=== PATIENT | female | born 1930 | race Caucasian/White ===

== ENCOUNTER 2019-08-23 09:13 | Inpatient (IN) ==
--- NOTE | 2019-08-23 09:43 | PROVIDER DOCUMENTATION ---
HPI-General Adult - General Chief Complaint: Weakness Stated Complaint: generalized weakness Time Seen by Provider: 08/23/19 09:30 Source: patient Allergies/Adverse Reactions: Patient Allergies Allergy/AdvReac Type Severity Reaction Status Date / Time No Known Allergies Allergy Verified 12/24/15 09:28 Home Medications: Home Medication List Medication Instructions Recorded Confirmed Last Taken Type Fluticasone Propionate [Flonase 2 spray NS DAILY 12/24/15 08/23/19 08/08/19 History Allergy Relief] 2 SPRAY Hydrochlorothiazide 12.5 mg PO DAILY 12/24/15 08/23/19 08/22/19 History 12.5 MG Levothyroxine [Synthroid] 0.5 tab PO DAILY 12/24/15 08/23/19 08/22/19 History 0.5 TAB Losartan Potassium 100 mg PO DAILY 12/24/15 08/23/19 08/22/19 History 100 MG Metoprolol Tartrate 25 mg PO BID 12/24/15 08/23/19 08/22/19 History 25 MG SIMVAstatin [Zocor] 40 mg PO QHS 12/24/15 08/23/19 08/22/19 History 40 MG Ubidecarenone [Co Q-10] 100 mg PO DAILY 12/24/15 08/23/19 08/22/19 History 100 MG Warfarin [Coumadin] 5 mg PO QHS 12/24/15 08/23/19 08/22/19 History 5 MG Flecainide Acetate 50 mg PO BID 08/23/19 08/23/19 08/22/19 History 50 MG Spironolactone 25 mg PO EVERY OTHER DAY 08/23/19 08/23/19 08/22/19 History 25 MG - History of Present Illness -Gen Adult Nature of Presenting Problems: Patient with a h/o HTN, HLD, Afib, hypot4, reports generalized weakness of 3 days duration , got worse today and had difficulty standing up from her toilet s eat until EMS arrival. She denies any chest pain, diaphoresis. She felt a little nauseous today but no vomiting. She has not been eating solid but puree diet for the past 3 to 4 days due to constipation and has had lots of BM recently. She does not have abdominal pain or diarrhea. Had difficulty urinating due to constipation but this has resolved now since having BM. She denies fever Location of Pain/Injury: reports: none, other (generalised weakness) Pain Radiation: reports: no radiation Onset/Duration: reports: 3 days ago Timing: reports: still present, getting worse Context/Activities at Onset: reports: none Modifying Factors: improves with: nothing Associated Symptoms: reports: nausea Review of Systems - Adult - REVIEW OF SYSTEMS - ADULT Constitutional: reports: see HPI Eyes: reports: no symptoms reported Ears, Nose, Mouth & Throat: reports: no symptoms reported Cardiovascular: reports: no symptoms reported Respiratory: reports: no symptoms reported Gastrointestinal: reports: nausea Genitourinary: reports: no symptoms reported Musculoskeletal: reports: no symptoms reported Integumentary: reports: no symptoms reported Neurological: reports: see HPI Psychiatric: reports: other (nrecent forgetfullness) Endocrine: reports: no symptoms reported Hematologic/Lymphatic: reports: no symptoms reported Allergic/Immunologic: reports: no symptoms reported All Other Systems: Reviewed and Negative Past History - Adult - PAST MEDICAL HISTORY-ADULT Review of Records: reports: Nursing Assessment Review, Medications Reviewed, Social history reviewed & non-contributory. Cardiovascular: reports: cardiac disease, A-Fib, HTN, hyperlipidemia Respiratory: reports: denies history Gastrointestinal: reports: other (constipation) Genitourinary: reports: denies history Musculoskeletal: reports: denies history Neurological: reports: other (recent forgetfullness) Psychiatric: reports: denies history Endocrine/Immune: reports: denies history - FAMILY HISTORY Family History: reviewed, not pertinent - SOCIAL HISTORY Smoking: denies Substance Use: none/never Alcohol Use Frequency: never Living Situation: alone Physical Exam-General - PHYSICAL EXAM-ADULT Initial Vital Signs Reviewed: Yes - CONSTITUTIONAL General Appearance: lethargic - EYES Eyes: PERRL/EOMI - HEAD, EARS, NOSE, MOUTH & THROAT HENMT: normocephalic/atraumatic - NECK Neck: non-tender, full range of motion, supple - RESPIRATORY Respiratory: chest non-tender, lungs clear, normal breath sounds - CARDIOVASCULAR Cardiovascular: no JVD, no murmur, irregularly irregular - GASTROINTESTINAL (ABDOMEN) Abdominal Exam: non tender, soft - MUSCULOSKELETAL Back Exam: normal inspection Extremity: non-tender, pedal edema - SKIN Integumentary: normal color - NEUROLOGIC Neurologic: grossly normal (for age) - PSYCHIATRIC Psych/Mental Status: oriented x 3 (a good historian) Progress - PLAN OF CARE/RESULTS Progress/Plan/Lab Results: Vital Signs - 8 hr 08/23/19 09:14 Temperature 97.9 F Pulse Rate 72 Respiratory Rate 16 Blood Pressure 162/128 O2 Sat by Pulse Oximetry 94 L Laboratory Results - last 24 hr 08/23/19 09:26 POC Glucose 109 H Orders Category Date Time Status CHEST-1 VIEW [RAD] Stat Exams 08/23/19 09:31 Ordered CBC WITH ELECTRONIC DIFF [HEME] Stat Lab 08/23/19 09:31 Uncollected COMPREHENSIVE METABOLIC PANEL [CHEM] Stat Lab 08/23/19 09:31 Uncollected LACTATE, PLASMA [CHEM] Stat Lab 08/23/19 09:31 Uncollected PRO B-NATRIURETIC PEPTIDE Stat Lab 08/23/19 09:31 Uncollected PROTIME WITH INR [COAG] Stat Lab 08/23/19 09:31 Uncollected TROPONIN T Stat Lab 08/23/19 09:31 Uncollected URINALYSIS W/POSS RFLX CULT [URINALYSIS] Stat Lab 08/23/19 09:31 Uncollected EKG [EKG] Stat Ther 08/23/19 09:31 Ordered Result Diagrams: 08/23/19 10:00 08/23/19 10:00 - REASSESSMENT Reassessment #1 Time Reassessed: 10:30 Status: other (Patient seen, comfortable in bed. son at bed side. Discussed CXR- worsened atelectasis versus pneumonia left lower lobe. She informed me that she had drainage of a left plueral effusion about a month by precision lens grinder prior to be sent to a material assistant) Reassessment #2 Time Reassessed: 12:06 Status: other (Pt seen at this time, reports no acute sxs- discussed labs with pt and son. She has a na of 130, slightly elevated bun/cr of 3.0/1.0 from being on spironolactone. has a pro bnp of >5000, worse than previous. Will blous with 250 to 300cc of NS. Will obtain a lat decub xray) - EKG 1 Time of EKG reading by physician:: 09:45 EKG Interpretation (*Must complete 3 of following elements*): Abnormal Rhythm: afib QRS: RBB ST Wave: non-specific ST changes - XRAY 1 XRAY Study: Chest ( EXAM: CHEST-1 VIEW 08/23/2019 HISTORY: generalised weakness TECHNIQUE: AP portable at 0943 COMMENT: There is increased opacification of the left lower lobe compared to 08/19/2019. There may be slightly more left pleural fluid. There is also a small right pleural effusion which was present previously. IMPRESSION: Worsened atelectasis versus pneumonia left lower lobe. Electronically signed by Giovanni Barrera 08/23/2019 9:57 AM) - CONSULTS/PCP/HOSPITALIST Notification #1 *Consult/PCP/Hospitalist*: [facility] Time Discussed: 02:35 Consult Disposition: Admit (Dorcas accepted admission for Dr Nuñez) Departure - Departure Date of Disposition Decision: 08/23/19 Time of Disposition Decision: 15:08 DIAGNOSIS: Generalized weakness, Hyponatremia, CHF (congestive heart failure) Disposition: ADMITTED INPATIENT 09 Certified Medical Emergency: Emergent Condition: Fair Referrals and Follow-Ups: Daphne Fuentes MD [Primary Care Provider] - - Critical Care Note This patient required my direct & personal management of CC.: Yes Attestation - Physician/ SHAMEKA Attestation Patient care was provided by Advanced Practice Provider:: No The physician spent face to face time with patient:: Yes Advanced Practice Provider documentation review:: Supervising physician onsite and consulted in the evaluation and care of this patient. The physician did have a face to face encounter with the patient.
--- NOTE | 2019-08-23 10:00 | Diag Imaging Result Doc PS360 ---
EXAM: CHEST-1 VIEW 08/23/2019 HISTORY: generalised weakness TECHNIQUE: AP portable at 0943 COMMENT: There is increased opacification of the left lower lobe compared to 08/19/2019. There may be slightly more left pleural fluid. There is also a small right pleural effusion which was present previously. IMPRESSION: Worsened atelectasis versus pneumonia left lower lobe. Electronically signed by Giovanni Barrera 08/23/2019 9:57 AM
--- NOTE | 2019-08-23 10:03 | EKG Report ---
Test Performed on : 08/23/2019 09:25:59 AM Test Reason : generalised weakness Blood Pressure : / mmHG Vent. Rate : 087 BPM Atrial Rate : 138 BPM P-R Int : 000 ms QRS Dur : 190 ms QT Int : 432 ms P-R-T Axes : 000 125 -06 degrees QTc Int : 519 ms Atrial fibrillation. Right bundle branch block Left posterior fascicular block Bifascicular block Inferior infarct , age undetermined Abnormal ECG When compared with ECG of 25-DEC-2015 07:12, Atrial fibrillation. has replaced Sinus rhythm. (RBBB and left posterior fascicular block) is now present Inferior infarct is now present Unconfirmed Result
[2019-08-23 10:32] LABS: BASO# 0.02 X1000 (0.0-0.2); BASO% 0.3 % (0.0-0.8); EOS# 0.09 X1000 (0.0-0.7); EOS% 1.3 % (0.0-10.0); HEMATOCRIT 48.5 % (37.0-47.0); HEMOGLOBIN 16.4 g/dL (12.0-16.0); IMM GRAN# 0.02 X1000 (0.0-0.04); IMM GRAN% 0.3 % (0.0-0.5); LYMPH# 0.92 X1000 (1.2-3.4); LYMPH% 13.1 % (20.5-51.1); MCH 30.2 PG (27-31); MCHC 33.8 g/dL (33-37); MCV 89.3 FL (81-99); MONO# 0.74 X1000 (0.11-0.59); MONO% 10.5 % (1.7-9.3); MPV 8.9 FL (7.4-10.4); NEUT# 5.24 X1000 (1.4-6.5); NEUT% 74.5 % (42.2-75.2); PLT 256 X1000 (130-400); RBC 5.43 XMIL (4.2-5.4); RDW 14.1 % (11.5-14.5); WBC 7.03 X1000 (4.8-10.8)
[2019-08-23 10:38] LABS: INR 3.17; PROTIME 33.5 Seconds (11.0-16.0)
[2019-08-23 11:17] LABS: ALB/GLOB RATIO 0.9; ALBUMIN 3.5 g/dL (3.5-5.0); CALCIUM 9.9 mg/dL (8.8-10.2); POTASSIUM 4.4 mmol/L (3.5-5.1); TOTAL BILIRUBIN 1.35 mg/dL (0.20-1.00); TOTAL PROTEIN 7.2 g/dL (6.3-8.3)
[2019-08-23 12:11] LABS: URINE SOURCE CLEAN CATCH
[2019-08-23 12:22] LABS: BILIRUBIN URINE NEGATIVE (NEGATIVE); BLOOD URINE NEGATIVE (NEGATIVE); COLOR YELLOW; GLUCOSE URINE NEGATIVE (NEGATIVE); KETONE URINE NEGATIVE (NEGATIVE); LEUKOCYTES URINE NEGATIVE (NEGATIVE); NITRITE URINE NEGATIVE (NEGATIVE); PROTEIN URINE TRACE mg/dL (NEGATIVE); SP GRAVITY URINE 1.012; TURBIDITY URINE CLEAR (CLEAR); UROBILINOGEN URINE NORMAL (NORMAL)
[2019-08-23 12:23] LABS: UR EPITHELIAL CELLS <10 /HPF (<10); URINE BACTERIA NEGATIVE /HPF; URINE RBC <10 /HPF (<10); URINE WBC <10 /HPF (<10)
--- NOTE | 2019-08-23 13:01 | Diag Imaging Result Doc PS360 ---
EXAM: CHEST-1 VIEW INDICATION: Generalized weakness TECHNIQUE: One view COMPARISON: 08/23/2019 FINDINGS: On the left lateral decubitus image, there does appear to be layering pleural fluid on the right and the left. The volume is fairly small. Otherwise, the chest is stable as compared to the very recent previous study. IMPRESSION: Small layering pleural effusion seen bilaterally as described. Electronically signed by Andriy Montiel 08/23/2019 12:59 PM
[2019-08-23] MEDS ORDERED: NS 250 ML IV ONE (13:59)
[2019-08-23] MEDS ORDERED: ROCEPHIN 1 GM in NS 50 ML IV SCH (15:51)
[2019-08-23] MEDS ORDERED: TYLENOL PO PRN (15:51)
[2019-08-23] MEDS ORDERED: NS 1,000 ML IV SCH (15:51)
[2019-08-23] MEDS ORDERED: ZITHROMAX 500 MG/NS 500 MG/250 ML IVPB IV SCH (15:51)
[2019-08-23] MEDS ORDERED: ZOFRAN IV PRN (15:51)
--- NOTE | 2019-08-23 16:15 | HISTORY AND PHYSICAL ---
PRIMARY CARE PHYSICIAN: Daphne Fuentes MD CHIEF COMPLAINT: Generalized weakness that has progressively worsened over the past 3 days with some associated nausea, but no vomiting. HISTORY OF PRESENTING ILLNESS: This is an 88-year-old female, who presents to [facility] via EMS with complaints of worsening generalized weakness over the last 3 days. States she also has felt a little nauseous, but no vomiting. Denied any shortness of breath. She also states she has had some constipation recently, but that that had resolved. She denied having a fever, chills, or body aches. Workup showed a blood pressure on arrival of 162/128. Her laboratory data showed a sodium of 130, a proBNP of 5931. It is noted that she had an echocardiogram done on 06/24/2019 that showed an ejection fraction of 55% to 60% with left ventricular function normal. Her chest x-ray showed an impression of worsened atelectasis versus pneumonia in the left lower lobe. Repeat x-ray showed small layering pleural effusion seen bilaterally so she will be admitted for further evaluation and treatment. PAST MEDICAL HISTORY: Hypertension, hyperlipidemia, atrial fibrillation, hypothyroidism. PAST SURGICAL HISTORY: None. FAMILY HISTORY: Reviewed and noncontributory. SOCIAL HISTORY: She currently lives alone. Denies any tobacco, alcohol, or illicit drug use. ALLERGIES: She has no known drug allergies. HOME MEDICATIONS: She takes flecainide 50 mg p.o. b.i.d., Flonase 2 sprays nasally daily, hydrochlorothiazide 12.5 mg p.o. daily, Synthroid 25 mcg half a tablet p.o. daily, losartan 100 mg p.o. daily, metoprolol 25 mg p.o. daily, simvastatin 40 mg p.o. at bedtime, spironolactone 25 mg p.o. every other day, Co-Q10 of 100 mg p.o. daily, and Coumadin 5 mg p.o. at bedtime. DIAGNOSTIC STUDIES: A white blood cell count of 7.03, hemoglobin 16.4, hematocrit 48.5, platelets 256,000. PT 33.5 and INR 3.17. Sodium 130, potassium 4.4, chloride 88, CO2 of 32, BUN of 23, creatinine 1, glucose 110. Troponin was negative. ProBNP of 5931. Plasma lactate of 1.1. TSH of 3.44. Urinalysis was negative. Chest x-ray on arrival showed a worsened atelectasis versus pneumonia in the left lower lobe as compared to 08/19/2019. Repeat chest x-ray several hours later showed small layering pleural effusion seen bilaterally. REVIEW OF SYSTEMS: She denied any fever, chills, blurred vision, dizziness, chest pain, coughing, shortness of breath. She denied any abdominal pain. Did have some nausea, but no vomiting. Was positive for constipation that has now resolved. Denied any diarrhea, burning or hurting with urination. She was positive for generalized weakness. PHYSICAL EXAMINATION: VITAL SIGNS: On arrival she had a temperature of 97.9 degrees, pulse 72, respirations 16, blood pressure was 162/128 on arrival, with O2 saturation of 94% on room air. Blood pressure is down to 150/102. GENERAL: This is an 88-year-old female, who is lying in the bed and answers questions appropriately. HEMNT: Normocephalic, atraumatic. Normal ENT inspection. Oropharynx and nares are clear. EYES: Pupils are equal, round, and reactive to light and accommodation. Extraocular movements are intact. NECK: Normal inspection, normal range of motion. LUNGS: Clear to auscultation bilaterally with equal lung expansion and chest wall movement. HEART: With regular rate and rhythm. No murmurs, rubs, or gallops. ABDOMEN: Soft, nontender, nondistended. Bowel sounds are present x4 quadrants. MUSCULOSKELETAL: She had 5/5 strength x4 extremities. NEUROLOGICAL: The cranial nerves 2 through 12 appear grossly intact. ASSESSMENT: 1. Left lower lobe opacity suspicious for pneumonia vs pleural effusion. 2. Hyponatremia. 3. Generalized weakness. 4. Hypertension. 5. History of atrial fibrillation, currently on anticoagulation. 6. Heart failure with preserved ejection fraction. OUR PLAN: She will be admitted to the medical unit, placed on telemetry, O2 per protocol, healthy heart diet, incentive spirometry. We will place her on Rocephin 1 gram IV q.24 h., azithromycin 500 IV q.24 h., DuoNeb q.4 h. Continue her home medications as previously identified. Give her normal saline at 75 mL an hour. Recheck CBC, BMP in the a.m. Further orders after seen by attending. Dictated by TANYA Chow for Juan Nuñez MD cc: TANYA Chow MD Emily M. McClure, MD I agree with most components of history, physical, assessment and plan. A separate addendum has been dictated. [facility]
[2019-08-23] MEDS: DUONEB (A & A) INH SCH ×3 (17:10→23:45)
[2019-08-23] MEDS ORDERED: LR 1,000 ML IV SCH (18:15)
[2019-08-23] MEDS ORDERED: LASIX IV ONE (18:31)
--- NOTE | 2019-08-23 19:45 | HISTORY AND PHYSICAL ---
ADDENDUM TO HISTORY AND PHYSICAL DICTATED BY THE NURSE PRACTITIONER: I agree with most components of history, physical, assessment, and plan. HISTORY: In brief, Miss Hines is an 88-year-old lady with past medical history of essential hypertension, suspected atrial fibrillation or other form of cardiac arrhythmia, hypothyroidism, hyperlipidemia, and DVT in 2017 who comes in with chief complaint of weakness which has been ongoing since past week. Apparently, the patient has been having shortness of breath of about 2 months duration and had seen a dry cell sealer outpatient and underwent left-sided thoracentesis. The pleural fluid analysis was largely benign, as per the report given to me by the family, and she was referred to product development intern after that. She underwent echocardiogram and heart event monitor and she was started on a flecainide. However, the patient states since then she has not been feeling well. She had started developing lower extremity edema for which she was also started on spironolactone, and it was thought to be related to diastolic heart failure. However, the patient's weakness continued to progress and so she decided to come to this hospital. SUBJECTIVE: At the time of my evaluation she is denying any fevers, chills, or chest pain. She is denying any cough or expectoration. She is just feeling weak and short of breath at the time of exertion. She has also noticed bilateral lower extremity swelling. CURRENT VITAL SIGNS: Temperature 97.5 degrees, pulse 94, respiratory rate 20, blood pressure 150/90. She is saturating 89% on room air. PHYSICAL EXAMINATION: GENERAL: She does not appear in any acute distress. HEENT: Oral cavity is moist. LUNGS: She has decreased air entry with inspiratory crackles on left infrascapular region and adequate air entry on right hemithorax. S1, S2 normal, regular. No murmur, rub, or gallop. ABDOMEN: Soft. Nontender. EXTREMITIES: She has bilateral lower extremity edema. LABORATORIES: Suggestive of concentrated hemoglobin of 16.4, INR of 3.1, hyponatremia, hypochloremia, and what appears to be chronic kidney disease stage IIIA. ProBNP is elevated up to 5000 which is significantly more than previous ProBNPs. Microbiology: No positive data. ASSESSMENT AND PLAN: 1. Acute hypoxic respiratory failure due to recurrent left pleural effusion due to acute diastolic congestive heart failure exacerbation. I will stop all intravenous fluids. I will start the patient on intravenous Lasix. 2. Suspected heart failure with preserved ejection fraction. Her ECHO 2 months ago had normal ejection fraction with 55% to 60% and pulmonary hypertension of 50 mmHg. Continue home metoprolol, spironolactone, losartan, and intravenous Lasix. 3. Suspected cardiac arrhythmia, the details of which are not clear at the moment. I will continue her home flecainide as well as warfarin which she was taking since her history of deep venous thrombosis in 2017. 4. Others. Continue levothyroxine for hypothyroidism. I will stop antibiotics since she does not have a white count or cough. I will get procalcitonin. I will also get D-dimer considering elevated pulmonary artery pressure and eventually may consider getting further imaging for pulmonary embolism, likelihood of which is less at the moment. DISPOSITION: I will continue to monitor the patient in telemetry unit. Plan of care discussed with her and her son at bedside. Their questions have been answered. cc: Juan Nuñez MD MTDD
[2019-08-23] MEDS: LOPRESSOR PO SCH (20:42)
[2019-08-23] MEDS: ZOCOR PO SCH (20:42)
[2019-08-23] MEDS: TAMBOCOR PO SCH (20:43)
[2019-08-23] MEDS ORDERED: COUMADIN PO SCH (21:00)
[2019-08-24] MEDS: DUONEB (A & A) INH SCH ×6 (03:29→23:29)
[2019-08-24] MEDS ORDERED: LASIX IV ONE ×3 (06:00→16:32)
[2019-08-24 06:47] LABS: BASO# 0.02 X1000 (0.0-0.2); BASO% 0.3 % (0.0-0.8); EOS% 1.5 % (0.0-10.0); HEMOGLOBIN 15.7 g/dL (12.0-16.0); LYMPH# 0.85 X1000 (1.2-3.4); LYMPH% 12.9 % (20.5-51.1); MCH 30.4 PG (27-31); MCHC 33.4 g/dL (33-37); MCV 90.9 FL (81-99); MONO# 0.81 X1000 (0.11-0.59); MONO% 12.3 % (1.7-9.3); MPV 8.8 FL (7.4-10.4); NEUT# 4.82 X1000 (1.4-6.5); PLT 231 X1000 (130-400); RBC 5.17 XMIL (4.2-5.4); RDW 14.2 % (11.5-14.5)
[2019-08-24 07:02] LABS: INR 3.08; PROTIME 32.7 Seconds (11.0-16.0)
[2019-08-24 07:27] LABS: CALCIUM 9.4 mg/dL (8.8-10.2); POTASSIUM 3.7 mmol/L (3.5-5.1)
--- NOTE | 2019-08-24 07:46 | EKG Report ---
Test Performed on : 08/24/2019 06:53:17 AM Test Reason : Follow up heart rhythm Blood Pressure : / mmHG Vent. Rate : 087 BPM Atrial Rate : 416 BPM P-R Int : 000 ms QRS Dur : 174 ms QT Int : 450 ms P-R-T Axes : 000 097 261 degrees QTc Int : 541 ms Atrial fibrillation. Right bundle branch block Cannot rule out Inferior infarct (cited on or before 23-AUG-2019) Abnormal ECG When compared with ECG of 23-AUG-2019 09:25, (Unconfirmed) No significant change was found Confirmed by Funmi MOSES, Sourav Mora ([id number]) on 08/25/2019 8:16:26 PM
[2019-08-24] MEDS ORDERED: HYDROCHLOROTHIAZIDE PO SCH (09:00)
[2019-08-24] MEDS: TAMBOCOR PO SCH (09:32)
[2019-08-24] MEDS: SYNTHROID PO SCH (09:32)
[2019-08-24] MEDS: COENZYME Q10 PO SCH (09:32)
[2019-08-24] MEDS: LOPRESSOR PO SCH ×2 (09:32→20:30)
[2019-08-24] MEDS: COZAAR PO SCH (09:33)
[2019-08-24] MEDS: FLONASE NAS SCH (09:39)
--- NOTE | 2019-08-24 13:20 | PROGRESS NOTE ---
DATE: 08/24/2019 INTERVAL HISTORY: No acute events overnight. SUBJECTIVE: Ms Hines is denying any complaints. Her oxygen level in fact improved after IV Lasix yesterday, remarkably. She is denying shortness of breath at rest. She has not been out of bed yet. The patient's family is at bedside. We discussed about possible causes behind her weakness. We also discussed about giving additional Lasix. Discussed about Cardiology consultation. The patient denies any chest pain, palpitation. VITAL SIGNS: Temperature 97.6 degrees, pulse 61, respiratory 20, blood pressure 117/84. Her oxygen saturation is 100% on 2 L nasal cannula. She had a bowel movement. PHYSICAL EXAMINATION: General: Does not appear in acute distress. HEENT: Oral cavity is moist. Lungs: Air entry bilaterally equal. No wheeze or rhonchi. Bilateral infrascapular crackles. Cardiovascular: S1, S2 normal. Irregularly irregular. No murmur, rub, or gallop. Abdomen: Soft, nontender. Extremities: She has bilateral lower extremity edema, more marked on ankles. Neurologic: She is alert and oriented x3. LABORATORY DATA: Suggest hemoglobin of 15.7. She does have INR of 3.08. Her potassium is 3.7. She does have elevated carbon dioxide. BUN and creatinine is likely unremarkable suggestive of chronic kidney dysfunction stage III. MICROBIOLOGY: No positive data. IMAGING: No new data. EKG has atrial fibrillation and right bundle branch block. ASSESSMENT AND PLAN: 1. Acute hypoxic respiratory failure due to bilateral pleural effusions due to acute heart failure with preserved ejection fraction exacerbation. Continue oxygen to maintain saturation more than 92%. 2. Suspected heart failure with preserved ejection fraction. Her echo in 2019 in May had an ejection fraction of 55% and pulmonary hypertension of 50 mmHg. Continue home metoprolol, spironolactone, losartan, and give intravenous Lasix as needed. She made 2 L urine on IV Lasix yesterday. 3. Atrial fibrillation, appears persistent. I will continue home flecainide. Currently rate is well controlled. I will appreciate Cardiology recommendation if she would need any further therapy for this and continue warfarin, which she has been taking since 2017 for history of DVT. 4. Others. Continue levothyroxine for hypothyroidism. Follow up procalcitonin level. Considering she is on warfarin, the likelihood of pulmonary embolism is low. 5. Disposition. Continue physical therapy. Patient may eventually need to go to rehab. Her weakness could be related to heart failure with preserved ejection fraction and volume overload. My suspicion for pneumonia is extremely low considering she did not have cough, fever or elevated WBC count. Plan of care discussed with multiple family members, their questions have been answered. cc: Juan Nuñez MD
[2019-08-24] MEDS ORDERED: KLOR-CON PO ONE (16:33)
[2019-08-24] MEDS: ZOCOR PO SCH (20:30)
[2019-08-24] MEDS: COUMADIN PO SCH (20:30)
--- NOTE | 2019-08-24 20:43 | CARDIOLOGY CONSULTATION ---
DATE: 08/24/2019 IMPRESSION: 1. 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 Patient manifests primarily pleural effusions and elevated jugular venous pressure, as well as edema. I suspect that development of atrial fibrillation earlier this year is likely contributing to tendency for congestive heart failure. 2. Persistent atrial fibrillation. First seen on ECG in 06/2019, but probably present since the spring of this year, when patient started having fatigue symptoms. Atrial fibrillation persists despite flecainide 100 mg p.o. b.i.d. 3. Hypertensive cardiovascular disease with mild elevation of left ventricular end-diastolic pressure on previous cardiac catheterization study 3 years ago. 4. Mild coronary atherosclerosis by coronary angiography 3 years ago. 5. Mild pulmonary hypertension by previous echocardiography. 6. Hyperlipidemia. 7. History of previous DVT more than 2 years ago. After which, patient has been on anticoagulation with warfarin since then. Current INR's are therapeutic. RECOMMENDATIONS: 1. Diurese gently. 2. Given persistence of atrial fibrillation despite flecainide and patient comorbidities, I favor switching patient to sotalol, and as she improves, pursue ARELI/cardioversion on Thursday, to see if episcopalian of sinus rhythm helps with her tendency for congestive heart failure as well as with her fatigue. HISTORY: This 88-year-old, white female, with past history of hypertensive cardiovascular disease with mild left ventricular diastolic dysfunction, mild coronary atherosclerosis, congestive heart failure with preserved left ventricular ejection fraction manifest by pleural effusions primarily, hyperlipidemia, and hypothyroidism, was admitted with increasing dyspnea that his exertional, as well as profound fatigue. She started having problems with dyspnea back in the spring of this year and was found to have significant pleural effusions. She had pulmonary evaluation and thoracentesis with pleural effusions proving to be transudative. She was felt to have congestive heart failure with preserved left ventricular ejection fraction. She had cardiology followup with Dr. Duong about a month ago and was noted to be in atrial fibrillation with controlled rate. She has been on beta blockers correction. She has also been on long-term anticoagulation with warfarin because of previous DVT. Anticoagulation was continued. Flecainide was initiated at 50 mg twice daily for a week, then increased to 100 mg twice daily. It is noteworthy that she relates that she felt considerable improvement when she had the thoracentesis with respect to her shortness of breath, but her fatigue has been rather persistent. She recently had some problems with urinary tract infection, treated with antibiotics. She has also had trouble with constipation. Prior to this hospitalization, she had rather profound fatigue and exertional shortness of breath. She just could not get up. There has been no orthopnea nor angina. She has had some tendency for nausea. She remains in atrial fibrillation with controlled rate. ProBNP was significantly elevated, suggesting congestive heart failure. PAST MEDICAL HISTORY: 1. Hypertensive cardiovascular disease with mild left ventricular diastolic dysfunction. 2. Mild coronary atherosclerosis by previous coronary angiography in 2016. 3. Persistent atrial fibrillation. 4. Tendency for congestive heart failure with preserved left ventricular ejection fraction. 5. Hyperlipidemia. 6. Hypothyroidism. PAST SURGICAL HISTORY: None. ALLERGIES: She has no known drug allergies. MEDICATIONS PRIOR TO ADMISSION: As listed. SOCIAL HISTORY: She has never smoked. She does not use alcohol. She lives in [place] and lives independently. FAMILY HISTORY: Negative for premature coronary disease. REVIEW OF SYSTEMS: Pulmonary: Noteworthy for dyspnea as well as some tendency for hypoxemia. She has been on home oxygen for this as well, but does not always feel compelled to use it. There has been some mild cough, but no significant sputum production. There has been no hemoptysis. Gastrointestinal: Some nausea as well as constipation, but otherwise negative. Constitutional: Negative for fever. Remainder of review of systems is negative/noncontributory with a 14-total system review. PHYSICAL EXAMINATION: A pleasant, elderly white female, in no distress on room air. Blood pressure 127/79, heart rate 81 and irregular, oxygen saturation 96%.HEENT: Extraocular movements appear intact. Mucous membranes are moist. Neck: Supple. Estimated jugular venous pressure is around 10 to 12 cm. Auscultation of the chest reveals some diminished breath sounds at the bases with some associated inspiratory crackles. Cardiac: An irregular rate and rhythm without appreciable murmur or gallop. Abdomen: Soft. Bowel sounds are normal. Extremities: Demonstrate mild pretibial edema with some wrinkling of the skin consistent with retreat of edema. DIAGNOSTIC DATA: A 12-lead EKG demonstrates atrial fibrillation with controlled ventricular rate response, right bundle-branch block, and left anterior fascicular block. LABORATORY DATA: Includes a proBNP on admission of 5931. Troponin T less than 0.01. White blood cell count 6.6, hematocrit 47.0, hemoglobin 15.7, platelet count 231,000. ProTime 32.7, INR 3.08. Sodium 137, potassium 3.7, chloride 89, carbon dioxide 36, BUN 19, creatinine 1.0, glucose 100. cc: Sarbjit Bernabe MD
[2019-08-25] MEDS: DUONEB (A & A) INH SCH ×6 (03:20→23:29)
[2019-08-25 07:25] LABS: CALCIUM 9.5 mg/dL (8.8-10.2); CREATININE 1.1 mg/dL (0.5-0.9); MAGNESIUM 1.8 mg/dL (1.5-2.7); POTASSIUM 3.8 mmol/L (3.5-5.1)
[2019-08-25] MEDS ORDERED: LASIX IV ONE (07:55)
--- NOTE | 2019-08-25 08:19 | PROGRESS NOTE ---
DATE: 08/25/2019 INTERVAL HISTORY: No acute events. SUBJECTIVE: She is denying any new complaints. Cardiology Team had seen her yesterday and her flecainide has been changed to sotalol. She is feeling stronger, and her weakness is better than before. I encouraged her to come out of bed. She is still in atrial fibrillation. VITALS: Temperature 98.2 degrees, pulse 94, respiratory 22, blood pressure 125/89, and saturating 97% on 2 L nasal cannula. PHYSICAL EXAMINATION: General: Does not appear in any acute distress. HEENT: Oral cavity is dry. Lungs: She has inspiratory crackles bilateral infrascapular region. No wheeze or rhonchi. Cardiovascular: S1, S2 normal. Irregularly irregular. No murmur, rub, or gallop. Abdomen: Soft. Nontender. Extremities: Bilateral lower extremity edema especially around the ankle, which is better than before. She has been -6 L since admission. She is alert and oriented x3. LABORATORY: No CBC today. BMP suggestive of slight rise in creatinine. Her BUN otherwise is unremarkable. MICROBIOLOGY: No positive data. IMAGING: No new imaging data. No new chest x-ray. ASSESSMENT AND PLAN: 1. Acute hypoxic respiratory failure due to bilateral pleural effusions due to acute heart failure with preserved ejection fraction exacerbation with a component of atrial fibrillation. Continue oxygenation to maintain saturation more than 92%. 2. Heart failure with preserved ejection fraction. Continue home metoprolol and spironolactone. Make it every day instead of every other day, losartan, intravenous Lasix. Monitor close urine output. 3. Persistent atrial fibrillation with controlled ventricular response. Continue sotalol as well as warfarin. As per Cardiology recommendation, she might need electrical cardioversion soon. 4. History of DVT in 2017. Continue home warfarin; continue levothyroxine for hypothyroidism. Procalcitonin level in lab. 5. Disposition: I will continue to monitor patient in PVC unit. Plan of care discussed with her. Her questions have been answered. cc: Juan Nuñez MD
[2019-08-25] MEDS: COZAAR PO SCH (08:42)
[2019-08-25] MEDS: COENZYME Q10 PO SCH (08:43)
[2019-08-25] MEDS: ALDACTONE PO SCH (08:43)
[2019-08-25] MEDS: SYNTHROID PO SCH (08:43)
[2019-08-25] MEDS: KLOR-CON PO SCH (08:43)
[2019-08-25] MEDS: BETAPACE PO SCH ×2 (08:43→21:18)
[2019-08-25] MEDS: LOPRESSOR PO SCH ×2 (08:48→21:18)
[2019-08-25] MEDS ORDERED: ALDACTONE PO SCH (09:00)
[2019-08-25] MEDS ORDERED: LASIX PO SCH (09:00)
[2019-08-25] MEDS: FLONASE NAS SCH (09:28)
--- NOTE | 2019-08-25 18:56 | CARDIOLOGY PROGRESS NOTE ---
DATE: 08/25/2019 SUBJECTIVE: Patient continues without shortness of breath or chest discomfort. She continues in atrial fibrillation. OBJECTIVE: Blood pressure 105/78 to 125/89. Heart rate 99 and irregular with ECG monitor showing atrial fibrillation. Oxygen saturation 98% on nasal cannula oxygen at 2 L/minute. Jugular venous distention is present suggesting mild elevation in central venous pressure. Auscultation of the chest reveals diminished breath sounds at the bases bilaterally.Cardiac: Irregular rate and rhythm without appreciable murmur or gallop. There is no evidence of peripheral edema. LABORATORY AND DIAGNOSTIC DATA: EKG is pending. Laboratory data includes sodium 136, potassium 3.8, chloride 89, carbon dioxide 36, BUN 19, creatinine 1.1, glucose 91. IMPRESSION: 1. 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 Patient has diuresed fairly well within the last 24 hours. She still manifests some signs of volume excess. 2. Persistent atrial fibrillation, probably contributing to tendency for congestive heart failure. 3. Hypertensive cardiovascular disease. 4. Mild coronary atherosclerosis by coronary angiography three years ago. 5. Mild pulmonary hypertension by previous echocardiography. 6. Hyperlipidemia. 7. History of previous deep vein thrombosis more than two years ago. After which, patient has been on chronic anticoagulation with therapeutic INR's of late. RECOMMENDATIONS: 1. Continue gentle diuresis. 2. Repeat ECG in a.m. 3. Tentative plan for ARELI cardioversion tomorrow to try and restore sinus rhythm. The rationale for this approach along with potential risks were discussed with the patient and she wished to proceed. cc: Sarbjit Bernabe MD
[2019-08-25] MEDS: ZOCOR PO SCH (21:18)
[2019-08-25] MEDS: COUMADIN PO SCH (21:18)
--- NOTE | 2019-08-25 22:32 | EKG Report ---
Test Performed on : 08/25/2019 6:08:54 PM Test Reason : atrial fibrillation Blood Pressure : / mmHG Vent. Rate : 095 BPM Atrial Rate : 119 BPM P-R Int : 000 ms QRS Dur : 160 ms QT Int : 404 ms P-R-T Axes : 000 087 -30 degrees QTc Int : 507 ms Atrial fibrillation. Right bundle branch block Possible Inferior infarct (cited on or before 23-AUG-2019) Abnormal ECG When compared with ECG of 24-AUG-2019 06:53, (Unconfirmed) No significant change was found Confirmed by Funmi MOSES, Sourav Mora ([id number]) on 08/26/2019 1:51:04 PM
[2019-08-26] MEDS: DUONEB (A & A) INH SCH ×6 (03:22→23:32)
[2019-08-26] MEDS: KLOR-CON PO SCH ×2 (06:04→10:29)
[2019-08-26] MEDS: SYNTHROID PO SCH (06:04)
[2019-08-26] MEDS: ALDACTONE PO SCH ×2 (06:04→10:29)
[2019-08-26] MEDS: COENZYME Q10 PO SCH ×2 (06:04→10:30)
[2019-08-26] MEDS: COZAAR PO SCH ×2 (06:04→10:30)
[2019-08-26] MEDS: BETAPACE PO SCH ×3 (06:04→20:27)
[2019-08-26] MEDS: LASIX PO SCH ×2 (06:05→10:29)
[2019-08-26] MEDS: LOPRESSOR PO SCH ×3 (06:05→20:27)
[2019-08-26 06:40] LABS: CALCIUM 9.2 mg/dL (8.8-10.2); MAGNESIUM 1.9 mg/dL (1.5-2.7); POTASSIUM 4.1 mmol/L (3.5-5.1)
--- NOTE | 2019-08-26 07:05 | EKG Report ---
Test Performed on : 08/26/2019 06:52:59 AM Test Reason : atrial fibrillation Blood Pressure : / mmHG Vent. Rate : 095 BPM Atrial Rate : 119 BPM P-R Int : 000 ms QRS Dur : 154 ms QT Int : 402 ms P-R-T Axes : 000 090 246 degrees QTc Int : 505 ms Atrial fibrillation. Nonspecific intraventricular block Lateral infarct , age undetermined Inferior infarct (cited on or before 23-AUG-2019) T wave abnormality, consider anterior ischemia Abnormal ECG When compared with ECG of 25-AUG-2019 18:08, (Unconfirmed) Lateral infarct is now present Nonspecific T wave abnormality, worse in Lateral leads Suspect arm lead reversal Confirmed by uFnmi MOSES, Sourav Mora ([id number]) on 08/26/2019 1:59:49 PM
--- NOTE | 2019-08-26 08:57 | PROGRESS NOTE ---
DATE: 08/26/2019 INTERVAL HISTORY: No acute events overnight. She is feeling stronger. She has been making good urine. She is still in atrial fibrillation and is about to go for cardioversion. She denies any complaints. VITALS: Temperature 98.5, pulse 92, respiratory rate 21, blood pressure 130/100, saturating 95% 2 L nasal cannula. PHYSICAL EXAMINATION: General: Does not appear in acute distress. HEENT: Oral cavity is moist. Lungs: Air entry bilaterally equal. No wheeze or rhonchi. She does have inspiratory crackles bilaterally in infrascapular region. Cardiovascular: S1, S2 normal. Irregularly irregular. No murmur, rub, or gallop. Abdomen: Soft, nontender. Extremities: Bilateral lower extremity edema, this is better than on presentation. Neurologic: She is alert and oriented x3. Since admission, she is negative 6.8 L. LABORATORY: No CBC today. BMP suggestive of what appears to chronic kidney dysfunction in stage 3 level. MICROBIOLOGY: No data. IMAGING: No new data. ASSESSMENT AND PLAN: 1. Acute hypoxic respiratory failure due to bilateral pleural effusion due to acute heart failure with preserved ejection fraction as well as atrial fibrillation. Continue oxygenation to maintain saturation more than 94%. 2. Heart failure with preserved ejection fraction. Continue home metoprolol, spironolactone, and change Lasix to oral. I will also continue losartan with close monitoring of urine output. 3. Persistent atrial fibrillation with controlled ventricular response, which is not getting better despite flecainide initially and now sotalol. Cardiology is planning electrical cardioversion. I will continue her on her home Coumadin. 4. History of deep venous thrombosis in 2017. Continue Coumadin, goal INR 2-3. A procalcitonin level is in Lab; continue levothyroxine for hypothyroidism. DISPOSITION: I will continue to monitor the patient in PVC unit. Social work rehab consult has been placed. If she tolerates cardioversion well, she will be ready for discharge in the next 24 hours or so. Plan of care discussed with her, all questions have been answered. cc: Juan Nuñez MD
[2019-08-26] MEDS ORDERED: LASIX PO SCH ×2 (09:00)
[2019-08-26] MEDS ORDERED: XYLOCAINE-MPF 2% ONE (10:13)
[2019-08-26] MEDS ORDERED: DIPRIVAN 1% ONE (10:13)
[2019-08-26] MEDS ORDERED: ROBINUL ONE (10:13)
[2019-08-26] MEDS ORDERED: ANESTHESIA PB SET 88 IN 5742 ONE (10:27)
[2019-08-26] MEDS ORDERED: NS 1,000 ML ONE (10:27)
[2019-08-26] MEDS: FLONASE NAS SCH (10:30)
--- NOTE | 2019-08-26 11:43 | EKG Report ---
Test Performed on : 08/26/2019 11:36:56 AM Test Reason : s/p ARELI/CVN Blood Pressure : / mmHG Vent. Rate : 057 BPM Atrial Rate : 057 BPM P-R Int : 184 ms QRS Dur : 148 ms QT Int : 462 ms P-R-T Axes : 049 082 005 degrees QTc Int : 449 ms Sinus bradycardia. Possible Left atrial enlargement Right bundle branch block Abnormal ECG When compared with ECG of 26-AUG-2019 06:52, (Unconfirmed) Sinus rhythm. has replaced Atrial fibrillation. Vent. rate has decreased BY 38 BPM Criteria for Lateral infarct are no longer present Nonspecific T wave abnormality, improved in Lateral leads QT has shortened Previous EKG has her arm leads reversed Confirmed by Funmi MOSES, Sourav Mora ([id number]) on 08/26/2019 2:01:36 PM
--- NOTE | 2019-08-26 13:08 | CARDIAC CATH REPORT ---
PROCEDURE NAME: - SUMMARY: after transesophageal echocardiography, under sedation per Anesthesiology with propofol, showing no evidence of left atrial thrombus, I performed synchronous direct current cardioversion with 200 joules biphasic, converting atrial fibrillation to sinus rhythm. There were no apparent complications. CONCLUSIONS: Successful cardioversion of atrial fibrillation to sinus rhythm. cc: Sarbjit Bernabe MD
--- NOTE | 2019-08-26 15:41 | DISCHARGE SUMMARY ---
ADMISSION DATE: 08/23/2019 DISCHARGE DATE: 08/27/2019 DISCHARGE DISPOSITION: Rehab. DISCHARGE CONDITION: The patient is hemodynamically stable. She is not short of breath using minimal oxygen. She is able to come out of bed and sit in the chair. She is feeling stronger. She is in normal sinus rhythm. DISCHARGE DIAGNOSES: 1. Acute hypoxic respiratory failure due to bilateral pleural effusion and acute pulmonary edema. 2. Acute heart failure with preserved ejection fraction exacerbation. 3. Persistent atrial fibrillation requiring cardioversion. 4. Generalized weakness due to atrial fibrillation and heart failure 5. Hyponatremia 6. Recurrent pleural effusions OTHER DIAGNOSES: 1. History of chronic kidney disease stage 3. 2. History of deep vein thrombosis in 2017, on warfarin. 3. History of hypothyroidism. 4. History of hyperlipidemia. 5. Essential hypertension. VITALS: Currently at the time of this dictation, temperature 98.2 degrees, pulse 76, respiratory rate 15, blood pressure 90/61, saturating 98% on 2 L nasal cannula. PHYSICAL EXAMINATION: General: She does not appear in any acute distress. Her oral cavity is moist. Air entry bilaterally equal. No wheeze or rhonchi. She does have mild inspiratory crackles bilaterally in infrascapular region. S1, S2 normal. No murmur, rub, or gallop. Abdomen: Soft, nontender. She has bilateral ankle edema. She is alert and oriented x3. SIGNIFICANT LABORATORY DURING HOSPITAL ADMISSION AND DISCHARGE.: Currently, her WBC is 6.6, hemoglobin 15.7, platelet 231,000. Her sodium is 134, potassium 89. Her carbon dioxide is 38. Her BUN is 16, creatinine of 1, GFR of 52, magnesium is 1.9. Significant microbiology during hospital admission: None. Her procalcitonin level was less than 0.10. SIGNIFICANT IMAGING DURING HOSPITAL ADMISSION: Chest x-ray on August 23, had atelectasis versus pneumonia of left lower lobe. However, decubitus chest x-ray had small layering of pleural effusion bilaterally. Electrocardiogram on August 23, had atrial fibrillation, right bundle- branch block which persisted on electrocardiogram on August 26, which had atrial fibrillation. She basically underwent 200 joule biphasic cardioversion on August 26, which resulted in successful cardioversion to normal sinus rhythm. HOSPITAL COURSE SUMMARY: Ms. Hines is an 88-year-old, lady, with past medical history of essential hypertension, atrial fibrillation, hypothyroidism, and DVT in 2017, who came in with chief complaint of weakness, which has been ongoing for 7 days. Apparently, she has been experiencing shortness of breath since the last 2 months and she had seen her computer analyst who had performed a thoracentesis. The results are not available to me. However, based on history, it sounds like the pleural fluid analysis had a transudative nature, so she was advised to have a followup with her three dimensional art instructor. She underwent echocardiogram outpatient, and she was started on spironolactone and metoprolol. However, her shortness of breath did not improve and she continued to have bilateral lower extremity edema. She was also at some point noticed to have atrial fibrillation and was put on flecainide, but she continued to have worsening weakness and shortness of breath, so she presented to the emergency room. In the emergency room, she was hemodynamically stable, except she was profoundly hypoxic on room air, where her saturations were found to be in 90s. So, the hospitalist team was consulted for further management. She was initially started on IV diuresis. Electrocardiogram had persistent atrial fibrillation. Cardiology team was consulted. Her flecainide was changed to sotalol, which did not convert her rhythm, so eventually underwent electrical cardioversion. At the time of this dictation, she is in normal sinus rhythm. She is on oral doses of diuretics. Considering her heart failure, she would benefit from going to the rehab. TIME SPENT: More than 30 minutes was spent in discharging this patient. cc: MD LIUDMILA Gil
--- NOTE | 2019-08-26 15:42 | DISCHARGE SUMMARY ---
ADMISSION DATE: 08/23/2019 DISCHARGE DATE: ADDENDUM REPORT: DISCHARGE MEDICATIONS: Simvastatin 40 mg at nighttime; CoQ10 at 100 mg daily; Flonase Allergy Relief 2 sprays intranasally daily; losartan 100 mg daily; levothyroxine 0.5 tablet of 75 mcg every other day and 50 mcg every other day; warfarin 5 mg Thursday, Thursday, Thursday and 2.5 mg on Thursday, , Thursday and Thursday; spironolactone 25 mg daily; sotalol 80 mg b.i.d.; Lasix 40 mg twice a day. PLAN: She was advised to get a repeat basic metabolic panel done within 4 days and adjust the dose of Lasix according to her response as well as kidney function and electrolytes. cc: Juan Nuñez MD MTDD
[2019-08-26] MEDS: COUMADIN PO SCH (20:27)
[2019-08-26] MEDS: ZOCOR PO SCH (20:27)
[2019-08-27] MEDS: DUONEB (A & A) INH SCH ×2 (03:15→09:14)
[2019-08-27] MEDS: SYNTHROID PO SCH (05:57)
[2019-08-27 06:30] LABS: CALCIUM 8.6 mg/dL (8.8-10.2); MAGNESIUM 1.9 mg/dL (1.5-2.7); POTASSIUM 4.2 mmol/L (3.5-5.1)
[2019-08-27 06:33] LABS: INR 3.51; PROTIME 36.4 Seconds (11.0-16.0)
[2019-08-27] MEDS ORDERED: LASIX IV ONE (07:12)
--- NOTE | 2019-08-27 07:16 | Diag Imaging Result Doc PS360 ---
EXAM: CHEST-PORTABLE 08/27/2019 HISTORY: Follow up pleural effusion TECHNIQUE: AP portable at 0556 COMMENT: There is hazy pulmonary edema particularly in the lingula and right pleural effusion. The latter was also present on 08/23/2019. The pulmonary edema and right pleural effusion are slightly worse than on 08/23/2019. IMPRESSION: Pulmonary edema. Right pleural effusion. Electronically signed by Giovanni Barrera 08/27/2019 7:14 AM
[2019-08-27] MEDS: COZAAR PO SCH ×2 (07:57→08:07)
[2019-08-27] MEDS: LOPRESSOR PO SCH ×2 (07:58→08:08)
[2019-08-27] MEDS: BETAPACE PO SCH ×2 (07:58→08:07)
[2019-08-27] MEDS: COENZYME Q10 PO SCH ×2 (07:58→08:07)
[2019-08-27] MEDS: ALDACTONE PO SCH ×2 (07:58→08:06)
[2019-08-27] MEDS: KLOR-CON PO SCH ×2 (07:58→08:08)
[2019-08-27] MEDS: LASIX PO SCH ×2 (07:58→08:08)
[2019-08-27] MEDS: FLONASE NAS SCH (08:07)
[2019-08-27 08:35] VITALS: BP 90/68
--- NOTE | 2019-08-27 09:01 | PROGRESS NOTE ---
DATE: 08/27/2019 INTERVAL HISTORY: No acute overnight events. She underwent cardioversion yesterday which she tolerated well and since then she has been normal sinus rhythm. SUBJECTIVE: She is denying any chest pain or shortness of breath at rest. We discussed about pulmonary edema and we discussed that I am increasing her Lasix dose to 40 mg b.i.d. I also talked with her that if she is able to walk in the hallway to the nursing station and come back without getting too much short of shortness of breath, I could consider discharging her to rehab today. She is in agreement. VITAL SIGNS: Temperature 98.1 degrees, pulse 53, respiratory rate 16, blood pressure 143/77. She is saturating 99% on 2 L nasal cannula. PHYSICAL EXAMINATION: Lungs: She does appear to have inspiratory crackles bilateral infrascapular region. Cardiovascular: S1, S2 is normal. No murmur, rub, or gallop. Regular. Abdomen: Soft. Extremities: Her ankle edema is significantly decreased from presentation. LABORATORY DATA: Suggestive of INR of 3.5. She does have sodium of 130, chloride of 88, her BUN is 17, creatinine is 1. MICROBIOLOGY: No data. IMAGING: Chest x-ray today morning suggests pulmonary edema and right-sided pleural effusion. ASSESSMENT: 1. Acute hypoxic respiratory failure. 2. Acute pulmonary edema and bilateral pleural effusion. 3. Heart failure with preserved ejection fraction. 4. Atrial fibrillation status post cardioversion. 5. History of deep venous thrombosis. 6. Hypothyroidism. Her procalcitonin levels were unremarkable and it was negative. PLAN: I will increase the Lasix dose to 40 mg p.o. b.i.d., and I will continue spironolactone every day. She should get a repeat BMP within 5 days. If she is able to tolerate physical activity without any difficulty, my plan will be to discharge her to rehab today. Plan of care discussed with her and she is in agreement. cc: Juan Nuñez MD
--- NOTE | 2019-08-27 14:16 | ECHO REPORT ---
ORDER DATE: 08/26/2019 SUMMARY: After intravenous sedation per Anesthesiology with propofol, I passed transesophageal echocardiography probe into the patient's esophagus without difficulty. Transesophageal echocardiography was performed and demonstrated: 1. The aortic valve is trileaflet and opens normally on 2-dimensional images. Mild mitral annular calcification is demonstrated with mild mitral regurgitation. Tricuspid and pulmonic valves are without evidence of structural abnormality. The aortic root is normal in size. There is mild to moderate dilatation of proximal ascending aorta measuring 4.1 cm. 2. Normal left ventricular chamber size with mild concentric left hypertrophy is demonstrated. Estimated left ventricular ejection fraction appears to be approximately 65%. No regional wall motion abnormalities are evident. Mild to moderate biatrial enlargement is demonstrated. Spontaneous contrast is seen in the left atrium. All 4 cardiac chambers and left atrial appendage appear free of intracardiac thrombus. 3. Interatrial septum appears intact without evidence of shunting on color Doppler. Intravenous agitated saline contrast study performed reveals no evidence of [id number] intracardiac shunting. 4. No pericardial effusion. 5. Left pleural effusion. 6. Descending thoracic aorta appears free of atheromata. cc: Sarbjit Bernabe MD
== END 2019-08-27 12:16 | DRG 291 ==
LOC: SUPCPDRO → ED 09:13 → 4N 15:18 → 2N 08-24 17:54
PROVIDERS: ATTEND Internal Medicine